=== PATIENT | male | born 1950 | race Caucasian/White ===

== ENCOUNTER → 2021-02-20 | Outpatient (CLI) | payer MEDICARE, MEDICAID ==
--- NOTE | 2021-02-20 10:07 | Diagnostic Imaging Report ---
CT Lung Screening INDICATION:30 pack-year smoking history TECHNIQUE: Noncontrast, low-dose CT imaging performed according to the lung cancer screening protocol. Auto Exposure Controls were utilize during the CT exam to meet ALARA standards for radiation dose reduction. COMPARISON:None FINDINGS:There is no evidence for a lung mass to suggest malignancy. There are emphysematous changes involving both lungs. There also is a poorly defined area of increased density in the right middle lobe. Suspect this is secondary to scar formation/chronic atelectasis. A few thin strands of fibrosis are also seen in both lung bases near the diaphragms. There is no evidence for failure, pneumonia or for pleural effusion to indicate an acute abnormality. The heart size is within normal limits. There may be sparse coronary artery calcifications. The aorta is not abnormally dilated. There is no obvious mediastinal or hilar adenopathy. The thyroid gland was not well-visualized. The sections through the upper abdomen failed to show any sign of an acute abnormality. The bone windows are unremarkable for a fracture or for destructive lesion. IMPRESSION: 1. There is no parenchymal lung mass to suggest malignancy. A followup low-dose lung cancer screening exam in one year would be recommended for continued evaluation. 2. There are emphysematous changes involving both lungs as well as scar formation/chronic atelectasis in the right middle lobe and mild fibrosis both lung bases. There is no acute cardiopulmonary abnormality noted however. LUNG-RADS CATEGORY:1 MODIFIER: OTHER SIGNIFICANT FINDINGS: Dictated by: Dictated on workstation # [id number]
== END ==
LOC: RAD 09:25
PROVIDERS: ATTEND Nurse Practitioner Family
DX: Z12.2 Encounter for screening for malignant neoplasm of respiratory organs (principal); J43.9 Emphysema, unspecified; J84.10 Pulmonary fibrosis, unspecified; F17.210 Nicotine dependence, cigarettes, uncomplicated
CPT/HCPCS: 71271